=== PATIENT | female | born 1955 | race African-American/Black ===

== ENCOUNTER 2018-04-18 15:55 | Inpatient (IN) | payer MEDICARE, OTHER ==
[~2018-04-18] VITALS: Ht 162.6 cm; Wt 59.0 kg
[2018-04-18] MEDS ORDERED: SODIUM CHLORIDE 0.9% 1,000 ML IV ONE (16:06)
[2018-04-18 17:28] LABS: EOSINOPHILS % 1.7 % (0.0-5.0); HEMATOCRIT. 46.4 % (36.0-48.0); HEMOGLOBIN. 15.8 g/dL (12.0-16.0); LYMPHOCYTES % 28.6 % (20.0-50.0); MEAN CORPUSCULAR HEMOGLOBIN 32.3 pg (28.0-32.0); MEAN CORPUSCULAR VOLUME 94.7 fL (81.0-99.0); MONOCYTES % 7.7 % (2.0-8.0); PLATELET 245 x1000/uL (130-400); RED CELL DISTRIBUTION WIDTH 13.4 % (11.6-14.6)
[2018-04-18 17:33] LABS: CHLORIDE 104 mEq/L (98-107)
[2018-04-18 17:36] LABS: CLARITY URINE CLOUDY (CLEAR); COLOR URINE DARK YELLOW (YELLOW); KETONES URINE NEGATIVE (NEGATIVE); LEUKOCYTE ESTERASE URINE 1+ (NEGATIVE); NITRITE URINE NEGATIVE (NEGATIVE); OCCULT BLOOD URINE NEGATIVE (NEGATIVE); PH URINE 6.5 (4.5-8.0); PROTEIN URINE 1+ (NEGATIVE); SPECIFIC GRAVITY URINE 1.022 (1.005-1.030)
[2018-04-18] MEDS ORDERED: DOCUSATE SODIUM 100MG CAPSULE PO PRN (19:15)
[2018-04-18] MEDS ORDERED: HYDROCODONE/ACETAMINOPHEN 5/325MG TABLET PO PRN (19:15)
[2018-04-18] MEDS ORDERED: NA PHOS,M-B/NA PHOS,DI-BA ENEMA 118ML PR PRN (19:15)
[2018-04-18] MEDS ORDERED: DIPHENHYDRAMINE 50MG/ML VIAL IV PRN (19:15)
[2018-04-18] MEDS ORDERED: ACETAMINOPHEN 325MG TABLET PO PRN (19:15)
[2018-04-18] MEDS ORDERED: ONDANSETRON HCL 4MG/2ML INJ IV PRN (19:15)
[2018-04-18] MEDS ORDERED: LORAZEPAM 2MG/ML CPJ IV PRN (19:15)
[2018-04-18] MEDS ORDERED: IPRATROPIUM/ALBUTEROL 0.5-3(2.5)MG/3ML NEB INH PRN (19:15)
[2018-04-18] MEDS ORDERED: HYDROMORPHONE HCL/PF 2MG/ML CPJ IV PRN (19:15)
[2018-04-18] MEDS ORDERED: MAGNESIUM/ALUMINUM HYDROXIDE/SIMETHICONE 30ML UDC PO PRN (19:15)
[2018-04-18] MEDS ORDERED: GUAIFENESIN 200MG/10ML SUGAR FREE UDC PO PRN (19:15)
[2018-04-18 20:00] VITALS: BP 162/89
[2018-04-18 21:00] VITALS: BP 162/89
[2018-04-18] MEDS: DEXT 5%/0.45% NACL KCL 10MEQ/L 1,000 ML IV SCH (22:00)
[2018-04-18 23:07] LABS: CHLORIDE 106 mEq/L (98-107)
[2018-04-19] VITALS (7 sets, daily range): BP systolic 130–170; BP diastolic 77–86
[2018-04-19] MEDS: CLONIDINE 0.1MG TABLET PO PRN (04:45)
[2018-04-19 07:18] LABS: BASOPHILS % 0.7 % (0.0-2.0); EOSINOPHILS % 2.7 % (0.0-5.0); HEMATOCRIT. 36.1 % (36.0-48.0); HEMOGLOBIN. 12.4 g/dL (12.0-16.0); LYMPHOCYTES % 43.6 % (20.0-50.0); MEAN CORPUSCULAR HEMOGLOBIN 32.2 pg (28.0-32.0); MEAN CORPUSCULAR VOLUME 93.7 fL (81.0-99.0); MEAN PLATELET VOLUME 8.9 fl (7.4-10.4); MONOCYTES % 12.5 % (2.0-8.0); NEUTROPHILS % 40.5 % (40.0-76.0); PLATELET 215 x1000/uL (130-400); RED BLOOD CELL COUNT 3.85 mill/uL (4.2-5.4)
[2018-04-19 07:42] LABS: CHLORIDE 108 mEq/L (98-107)
[2018-04-19 07:54] LABS: LDL CHOLESTEROL 86 mg/dL (5-100); T4 FREE 1.08 ng/dL (0.76-1.46)
[2018-04-19 07:55] LABS: HDL CHOLESTEROL 57 mg/dL (40-59)
[2018-04-19] MEDS: ASPIRIN 81MG EC TABLET PO SCH (08:57)
[2018-04-19] MEDS: ENOXAPARIN 40MG/0.4ML SYR SUBCUT SCH (08:59)
[2018-04-19] MEDS: DEXT 5%/0.45% NACL KCL 10MEQ/L 1,000 ML IV SCH (15:19)
[2018-04-20] VITALS: BP 137/80
[2018-04-20] MEDS: DEXT 5%/0.45% NACL KCL 10MEQ/L 1,000 ML IV SCH (00:59)
[2018-04-20 04:00] VITALS: BP 148/86
[2018-04-20 06:51] LABS: BASOPHILS % 1.1 % (0.0-2.0); EOSINOPHILS % 5.3 % (0.0-5.0); HEMATOCRIT. 37.1 % (36.0-48.0); HEMOGLOBIN. 12.9 g/dL (12.0-16.0); LYMPHOCYTES % 49.1 % (20.0-50.0); MEAN CORPUSCULAR HEMOGLOBIN 32.9 pg (28.0-32.0); MEAN CORPUSCULAR VOLUME 94.7 fL (81.0-99.0); MEAN PLATELET VOLUME 8.7 fl (7.4-10.4); MONOCYTES % 12.7 % (2.0-8.0); NEUTROPHILS % 31.8 % (40.0-76.0); PLATELET 212 x1000/uL (130-400); RED BLOOD CELL COUNT 3.92 mill/uL (4.2-5.4)
[2018-04-20 08:00] VITALS: BP 164/90
[2018-04-20 08:13] LABS: CHLORIDE 110 mEq/L (98-107)
[2018-04-20] MEDS: ASPIRIN 81MG EC TABLET PO SCH (08:24)
[2018-04-20] MEDS: ENOXAPARIN 40MG/0.4ML SYR SUBCUT SCH (08:24)
[2018-04-20] MEDS: CLONIDINE 0.1MG TABLET PO PRN (10:24)
[2018-04-20 12:00] VITALS: BP 131/87
[2018-04-20 12:08] VITALS: BP 131/87
== END 2018-04-20 12:45 | disposition home or self-care (01) | DRG 640 ==
LOC: ER 16:08 → EDBEDREQTM 19:07 → EDBEDREQ 19:07 → ENRESERV 19:35 → 7WST 20:53
PROVIDERS: ADMIT Internal Medicine; ATTEND Internal Medicine
DX: E86.0 Dehydration (principal); G93.41 Metabolic encephalopathy; E46 Unspecified protein-calorie malnutrition; I10 Essential (primary) hypertension; E87.6 Hypokalemia; D72.819 Decreased white blood cell count, unspecified; G35 Multiple sclerosis; L84 Corns and callosities; M20.42 Other hammer toe(s) (acquired), left foot; M20.41 Other hammer toe(s) (acquired), right foot; R74.0 Nonspecific elevation of levels of transaminase and lactic acid dehydrogenase [LDH]; E11.9 Type 2 diabetes mellitus without complications; Z86.73 Personal history of transient ischemic attack (TIA), and cerebral infarction without residual deficits; Z68.22 Body mass index [BMI] 22.0-22.9, adult
CPT/HCPCS: 36415; 71045; 80048; 80061; 84439; 84443; 84484; 87804; 93005; 96360; 96361; 99285; J1200; J1650; J7030

== ENCOUNTER 2018-12-01 21:00 | Inpatient (IN) | payer MEDICARE, OTHER ==
[~2018-12-01] VITALS: Ht 165.1 cm; Wt 63.5 kg
[2018-12-01 21:00] VITALS: BP_SYST 138; BP_SYST 168; BP_DIAS 100; BP_DIAS 84
[~2018-12-01 21:00] MED LIST: ASPI-1393 PO; DIAZ10TA4 PO; ERGO2000 PO; FOLI-43 PO; LIP40 PO; LOSA50TA41 PO; QUET100T33 PO; RAMI5CAP65 PO; SENN17.27 MT
[2018-12-02] MEDS ORDERED: ONDANSETRON HCL 4MG/2ML INJ IV PRN (01:30)
[2018-12-02] MEDS ORDERED: KETOROLAC 30MG/ML VIAL IV PRN (01:30)
[2018-12-02] MEDS ORDERED: ZOLPIDEM TARTRATE 5MG TABLET PO PRN (01:30)
[2018-12-02] MEDS ORDERED: TRAMADOL 50MG TABLET PO PRN (01:30)
[2018-12-02] MEDS ORDERED: IPRATROPIUM/ALBUTEROL 0.5-3(2.5)MG/3ML NEB HHN PRN (01:30)
[2018-12-02] MEDS: SODIUM CHLORIDE 0.9% 1,000 ML IV SCH ×3 (02:00→12:10)
[2018-12-02] MEDS: DEXAMETHASONE 4MG/ML 1ML VIAL IV SCH ×4 (03:24→21:32)
[2018-12-02 07:52] LABS: BASOPHILS % 0.4 % (0.0-2.0); EOSINOPHILS % 0.4 % (0.0-5.0); HEMATOCRIT. 40.2 % (36.0-48.0); HEMOGLOBIN. 13.7 g/dL (12.0-16.0); LYMPHOCYTES % 14.5 % (20.0-50.0); MEAN CORPUSCULAR HEMOGLOBIN 31.5 pg (28.0-32.0); MEAN CORPUSCULAR VOLUME 92.4 fL (81.0-99.0); MEAN PLATELET VOLUME 8.4 fl (7.4-10.4); MONOCYTES % 2.9 % (2.0-8.0); NEUTROPHILS % 81.8 % (40.0-76.0); PLATELET 273 x1000/uL (130-400); RED BLOOD CELL COUNT 4.35 mill/uL (4.2-5.4); RED CELL DISTRIBUTION WIDTH 13.6 % (11.6-14.6)
[2018-12-02 08:02] LABS: CHLORIDE 112 mEq/L (98-107)
[2018-12-02] MEDS: LOSARTAN POTASSIUM 50 MG TABLET PO SCH (08:30)
[2018-12-02] MEDS: ASPIRIN 81MG EC TABLET PO SCH (08:30)
[2018-12-02] MEDS: ENOXAPARIN 40MG/0.4ML SYR SUBCUT SCH (08:31)
[2018-12-02] MEDS ORDERED: RAMIPRIL 5 MG PO SCH (09:00)
[2018-12-02 09:04] VITALS: BP 128/76
[2018-12-02] MEDS ORDERED: BISACODYL 10MG SUPP PR PRN (12:15)
[2018-12-02] MEDS: KETOROLAC 15MG/ML VIAL IV PRN (12:16)
[2018-12-02] MEDS: LACTULOSE 20G/30ML UDC PO SCH ×3 (13:41→21:32)
[2018-12-02] MEDS: DOCUSATE SODIUM 100MG CAPSULE PO SCH (17:23)
[2018-12-02 20:00] VITALS: BP 151/79
[2018-12-02] MEDS ORDERED: QUETIAPINE FUMARATE 50MG TABLET PO SCH (21:00)
[2018-12-02] MEDS: POLYETHYLENE GLYCOL 3350 (17GM) 1 DOSE PACK PO SCH (21:34)
[2018-12-02] MEDS: QUETIAPINE FUMARATE 50MG TABLET PO SCH (21:34)
[2018-12-02] MEDS: ATORVASTATIN CALCIUM 40MG TABLET PO SCH (21:46)
[2018-12-03] MEDS: DEXAMETHASONE 4MG/ML 1ML VIAL IV SCH ×4 (02:06→20:13)
[2018-12-03 07:52] VITALS: BP 147/77
[2018-12-03] MEDS: SODIUM CHLORIDE 0.9% 1,000 ML IV SCH ×2 (08:00→17:22)
[2018-12-03] MEDS: DOCUSATE SODIUM 100MG CAPSULE PO SCH ×2 (09:02→16:18)
[2018-12-03] MEDS: LOSARTAN POTASSIUM 50 MG TABLET PO SCH (09:02)
[2018-12-03] MEDS: ENOXAPARIN 40MG/0.4ML SYR SUBCUT SCH (09:02)
[2018-12-03] MEDS: ASPIRIN 81MG EC TABLET PO SCH (09:02)
[2018-12-03] MEDS ORDERED: BISACODYL 10MG SUPP PR PRN (15:00)
[2018-12-03] MEDS ORDERED: SORBITOL 70% SOLN 30ML PO NR (16:00)
[2018-12-03] MEDS ORDERED: NA PHOS,M-B/NA PHOS,DI-BA ENEMA 118ML PR NR (16:00)
[2018-12-03 20:00] VITALS: BP 139/80
[2018-12-03] MEDS: QUETIAPINE FUMARATE 50MG TABLET PO SCH (20:13)
[2018-12-03] MEDS: ATORVASTATIN CALCIUM 40MG TABLET PO SCH (20:13)
[2018-12-03] MEDS: POLYETHYLENE GLYCOL 3350 (17GM) 1 DOSE PACK PO SCH (20:13)
[2018-12-04 02:04] LABS: CLARITY URINE CLEAR (CLEAR); COLOR URINE YELLOW (YELLOW); KETONES URINE NEGATIVE (NEGATIVE); LEUKOCYTE ESTERASE URINE NEGATIVE (NEGATIVE); NITRITE URINE NEGATIVE (NEGATIVE); OCCULT BLOOD URINE NEGATIVE (NEGATIVE); PROTEIN URINE NEGATIVE (NEGATIVE); SPECIFIC GRAVITY URINE 1.007 (1.005-1.030); UROBILINOGEN URINE 0.2 E.U./dL (0.2-1.0)
[2018-12-04] MEDS: DEXAMETHASONE 4MG/ML 1ML VIAL IV SCH ×3 (05:40→13:20)
[2018-12-04 06:33] LABS: BASOPHILS % 0.6 % (0.0-2.0); HEMATOCRIT. 36.8 % (36.0-48.0); HEMOGLOBIN. 12.6 g/dL (12.0-16.0); LYMPHOCYTES % 14.5 % (20.0-50.0); MEAN CORPUSCULAR HEMOGLOBIN 31.9 pg (28.0-32.0); MEAN CORPUSCULAR VOLUME 93.1 fL (81.0-99.0); MEAN PLATELET VOLUME 8.6 fl (7.4-10.4); MONOCYTES % 6.2 % (2.0-8.0); NEUTROPHILS % 78.7 % (40.0-76.0); PLATELET 271 x1000/uL (130-400); RED BLOOD CELL COUNT 3.95 mill/uL (4.2-5.4); RED CELL DISTRIBUTION WIDTH 13.5 % (11.6-14.6)
[2018-12-04] MEDS: SODIUM CHLORIDE 0.9% 1,000 ML IV SCH ×2 (06:43→13:27)
[2018-12-04 07:01] LABS: CHLORIDE 115 mEq/L (98-107)
[2018-12-04 07:05] LABS: FOLIC ACID (FOLATE) SERUM 5.2 ng/mL (>5.38)
[2018-12-04 07:13] LABS: PHOSPHORUS 3.5 mg/dL (2.5-4.9); TOTAL IRON BINDING CAPACITY 191 ug/dL (250-450)
[2018-12-04 08:00] VITALS: BP 152/88
[2018-12-04] MEDS: LOSARTAN POTASSIUM 50 MG TABLET PO SCH (08:44)
[2018-12-04] MEDS: CLOPIDOGREL 75MG TABLET PO SCH (08:44)
[2018-12-04] MEDS: DOCUSATE SODIUM 100MG CAPSULE PO SCH ×2 (08:44→16:47)
[2018-12-04] MEDS: ENOXAPARIN 40MG/0.4ML SYR SUBCUT SCH (08:45)
[2018-12-04] MEDS ORDERED: NA PHOS,M-B/NA PHOS,DI-BA ENEMA 118ML PR PRN (09:00)
[2018-12-04] MEDS: KETOROLAC 15MG/ML VIAL IV PRN (12:34)
[2018-12-04] MEDS ORDERED: CLONIDINE 0.1MG TABLET PO PRN (13:00)
[2018-12-04] MEDS: FOLIC ACID 1MG TABLET PO SCH (13:28)
[2018-12-04 13:57] VITALS: BP 139/76
[2018-12-04 20:00] VITALS: BP 133/67
[2018-12-04] MEDS: ATORVASTATIN CALCIUM 40MG TABLET PO SCH (20:32)
[2018-12-04] MEDS: QUETIAPINE FUMARATE 50MG TABLET PO SCH (20:32)
[2018-12-04] MEDS: POLYETHYLENE GLYCOL 3350 (17GM) 1 DOSE PACK PO SCH (20:33)
[2018-12-05] MEDS: SODIUM CHLORIDE 0.9% 1,000 ML IV SCH (03:28)
[2018-12-05 06:35] LABS: CHLORIDE 115 mEq/L (98-107)
[2018-12-05 06:57] LABS: T4 FREE 0.82 ng/dL (0.76-1.46)
[2018-12-05 08:00] VITALS: BP 158/78
[2018-12-05] MEDS: CLOPIDOGREL 75MG TABLET PO SCH (09:02)
[2018-12-05] MEDS: FOLIC ACID 1MG TABLET PO SCH (09:02)
[2018-12-05] MEDS: ENOXAPARIN 40MG/0.4ML SYR SUBCUT SCH (09:02)
[2018-12-05] MEDS: LOSARTAN POTASSIUM 50 MG TABLET PO SCH (09:02)
[2018-12-05] MEDS: DEXAMETHASONE 4MG/ML 1ML VIAL IV SCH (09:02)
[2018-12-05] MEDS: DOCUSATE SODIUM 100MG CAPSULE PO SCH ×2 (09:03→16:53)
[2018-12-05] MEDS ORDERED: BISACODYL 10MG SUPP PR SCH (14:15)
[2018-12-05] MEDS ORDERED: SORBITOL 70% SOLN 30ML PO NR (14:15)
[2018-12-05 20:00] VITALS: BP 157/94
[2018-12-05] MEDS: POLYETHYLENE GLYCOL 3350 (17GM) 1 DOSE PACK PO SCH (21:00)
[2018-12-05] MEDS: QUETIAPINE FUMARATE 50MG TABLET PO SCH (21:02)
[2018-12-05] MEDS: ATORVASTATIN CALCIUM 40MG TABLET PO SCH (21:02)
[2018-12-06 07:18] LABS: CHLORIDE 110 mEq/L (98-107)
[2018-12-06 08:00] VITALS: BP 149/93
[2018-12-06] MEDS: FOLIC ACID 1MG TABLET PO SCH (09:00)
[2018-12-06] MEDS: LOSARTAN POTASSIUM 50 MG TABLET PO SCH (09:00)
[2018-12-06] MEDS: CLOPIDOGREL 75MG TABLET PO SCH (09:00)
[2018-12-06] MEDS: ENOXAPARIN 40MG/0.4ML SYR SUBCUT SCH (09:00)
[2018-12-06] MEDS: DOCUSATE SODIUM 100MG CAPSULE PO SCH ×2 (09:00→16:43)
[2018-12-06] MEDS: DEXAMETHASONE 4MG/ML 1ML VIAL IV SCH (09:00)
[2018-12-06] MEDS ORDERED: ZOLPIDEM TARTRATE 5MG TABLET PO PRN (17:00)
[2018-12-06] MEDS ORDERED: TRAMADOL 50MG TABLET PO PRN (19:30)
[2018-12-06] MEDS ORDERED: KETOROLAC 15MG/ML VIAL IV PRN (19:45)
[2018-12-06 20:00] VITALS: BP 148/76
[2018-12-06] MEDS: QUETIAPINE FUMARATE 50MG TABLET PO SCH (21:03)
[2018-12-06] MEDS: POLYETHYLENE GLYCOL 3350 (17GM) 1 DOSE PACK PO SCH (21:03)
[2018-12-06] MEDS: ATORVASTATIN CALCIUM 40MG TABLET PO SCH (21:03)
[2018-12-07 07:12] LABS: FOLICLE STIMULATING HORMONE 45.2 mIU/mL (.); LUTEINIZING HORMONE 33.6 mIU/mL (.)
[2018-12-07 08:22] VITALS: BP 163/89
[2018-12-07] MEDS: LOSARTAN POTASSIUM 50 MG TABLET PO SCH (09:07)
[2018-12-07] MEDS: FOLIC ACID 1MG TABLET PO SCH (09:07)
[2018-12-07] MEDS: ENOXAPARIN 40MG/0.4ML SYR SUBCUT SCH (09:07)
[2018-12-07] MEDS: DOCUSATE SODIUM 100MG CAPSULE PO SCH ×2 (09:07→16:49)
[2018-12-07] MEDS: DEXAMETHASONE 4MG/ML 1ML VIAL IV SCH (09:07)
[2018-12-07] MEDS: CLOPIDOGREL 75MG TABLET PO SCH (09:07)
[2018-12-07] MEDS: ACETAMINOPHEN 325MG TABLET PO PRN (10:51)
[2018-12-07] MEDS ORDERED: MAGNESIUM/ALUMINUM HYDROXIDE/SIMETHICONE 30ML UDC PO NR (16:00)
[2018-12-07] MEDS ORDERED: SORBITOL 70% SOLN 30ML PO NR (16:00)
[2018-12-07] MEDS: PANTOPRAZOLE 40MG DR TABLET PO SCH (16:49)
[2018-12-07 20:00] VITALS: BP 140/80
[2018-12-07] MEDS: ATORVASTATIN CALCIUM 40MG TABLET PO SCH (20:47)
[2018-12-07] MEDS: QUETIAPINE FUMARATE 50MG TABLET PO SCH (20:47)
[2018-12-07] MEDS: POLYETHYLENE GLYCOL 3350 (17GM) 1 DOSE PACK PO SCH (20:47)
[2018-12-08] MEDS: PANTOPRAZOLE 40MG DR TABLET PO SCH (06:11)
[2018-12-08] MEDS: ACETAMINOPHEN 325MG TABLET PO PRN (06:15)
[2018-12-08 06:16] LABS: BASOPHILS % 0.6 % (0.0-2.0); HEMATOCRIT. 38.6 % (36.0-48.0); HEMOGLOBIN. 13.1 g/dL (12.0-16.0); LYMPHOCYTES % 28.3 % (20.0-50.0); MEAN CORPUSCULAR HEMOGLOBIN 31.5 pg (28.0-32.0); MEAN CORPUSCULAR VOLUME 92.7 fL (81.0-99.0); MEAN PLATELET VOLUME 8.7 fl (7.4-10.4); MONOCYTES % 10.1 % (2.0-8.0); PLATELET 275 x1000/uL (130-400); RED BLOOD CELL COUNT 4.17 mill/uL (4.2-5.4); RED CELL DISTRIBUTION WIDTH 13.7 % (11.6-14.6)
[2018-12-08 06:36] LABS: CHLORIDE 109 mEq/L (98-107)
[2018-12-08 06:41] LABS: PHOSPHORUS 3.5 mg/dL (2.5-4.9)
[2018-12-08 08:14] VITALS: BP 131/80
[2018-12-08] MEDS: ENOXAPARIN 40MG/0.4ML SYR SUBCUT SCH (09:56)
[2018-12-08] MEDS: FOLIC ACID 1MG TABLET PO SCH (09:57)
[2018-12-08] MEDS: CLOPIDOGREL 75MG TABLET PO SCH (09:57)
[2018-12-08] MEDS: LOSARTAN POTASSIUM 100 MG TABLET PO SCH (09:57)
[2018-12-08] MEDS: DOCUSATE SODIUM 100MG CAPSULE PO SCH ×2 (09:57→17:15)
[2018-12-08] MEDS: DEXAMETHASONE 4MG/ML 1ML VIAL IV SCH (09:58)
[2018-12-08] MEDS: TRAMADOL 50MG TABLET PO PRN (17:22)
[2018-12-08 19:13] LABS: 25-HYDROXY VITAMIN D3 3.5 ng/mL (.)
[2018-12-08 20:00] VITALS: BP 159/96
[2018-12-08] MEDS: QUETIAPINE FUMARATE 50MG TABLET PO SCH (21:15)
[2018-12-08] MEDS: ATORVASTATIN CALCIUM 40MG TABLET PO SCH (21:15)
[2018-12-08] MEDS: POLYETHYLENE GLYCOL 3350 (17GM) 1 DOSE PACK PO SCH (21:16)
[2018-12-09] MEDS: TRAMADOL 50MG TABLET PO PRN (01:48)
[2018-12-09 08:00] VITALS: BP 142/74
[2018-12-09] MEDS: ENOXAPARIN 40MG/0.4ML SYR SUBCUT SCH (09:26)
[2018-12-09] MEDS: CLOPIDOGREL 75MG TABLET PO SCH (09:26)
[2018-12-09] MEDS: LOSARTAN POTASSIUM 100 MG TABLET PO SCH (09:26)
[2018-12-09] MEDS: FOLIC ACID 1MG TABLET PO SCH (09:26)
[2018-12-09] MEDS: FAMOTIDINE 20MG TABLET PO SCH ×2 (09:26→20:56)
[2018-12-09] MEDS: DOCUSATE SODIUM 100MG CAPSULE PO SCH ×2 (09:26→16:19)
[2018-12-09 20:00] VITALS: BP 137/65
[2018-12-09] MEDS: ATORVASTATIN CALCIUM 40MG TABLET PO SCH (20:56)
[2018-12-09] MEDS: QUETIAPINE FUMARATE 50MG TABLET PO SCH (20:56)
[2018-12-09] MEDS: POLYETHYLENE GLYCOL 3350 (17GM) 1 DOSE PACK PO SCH (20:57)
[2018-12-10 08:00] VITALS: BP 116/61
[2018-12-10] MEDS: ENOXAPARIN 40MG/0.4ML SYR SUBCUT SCH (08:59)
[2018-12-10] MEDS: FAMOTIDINE 20MG TABLET PO SCH ×2 (08:59→21:24)
[2018-12-10] MEDS: CLOPIDOGREL 75MG TABLET PO SCH (08:59)
[2018-12-10] MEDS: FOLIC ACID 1MG TABLET PO SCH (08:59)
[2018-12-10] MEDS: LOSARTAN POTASSIUM 100 MG TABLET PO SCH (08:59)
[2018-12-10] MEDS: DOCUSATE SODIUM 100MG CAPSULE PO SCH ×2 (08:59→17:11)
[2018-12-10 20:00] VITALS: BP 130/85
[2018-12-10] MEDS: ACETAMINOPHEN 325MG TABLET PO PRN (20:03)
[2018-12-10] MEDS: POLYETHYLENE GLYCOL 3350 (17GM) 1 DOSE PACK PO SCH (21:00)
[2018-12-10] MEDS ORDERED: ZOLPIDEM TARTRATE 5MG TABLET PO PRN (21:00)
[2018-12-10] MEDS: QUETIAPINE FUMARATE 50MG TABLET PO SCH (21:24)
[2018-12-10] MEDS: ATORVASTATIN CALCIUM 40MG TABLET PO SCH (21:24)
[2018-12-11 07:02] LABS: CHLORIDE 108 mEq/L (98-107)
[2018-12-11 07:26] LABS: BASOPHILS % 0.9 % (0.0-2.0); HEMATOCRIT. 40.6 % (36.0-48.0); HEMOGLOBIN. 13.8 g/dL (12.0-16.0); LYMPHOCYTES % 35.6 % (20.0-50.0); MEAN CORPUSCULAR HEMOGLOBIN 31.8 pg (28.0-32.0); MEAN CORPUSCULAR VOLUME 93.9 fL (81.0-99.0); MEAN PLATELET VOLUME 8.3 fl (7.4-10.4); MONOCYTES % 13.7 % (2.0-8.0); NEUTROPHILS % 45.8 % (40.0-76.0); PLATELET 318 x1000/uL (130-400); RED BLOOD CELL COUNT 4.33 mill/uL (4.2-5.4); RED CELL DISTRIBUTION WIDTH 13.8 % (11.6-14.6)
[2018-12-11 08:49] VITALS: BP 140/82
[2018-12-11] MEDS: ENOXAPARIN 40MG/0.4ML SYR SUBCUT SCH (09:16)
[2018-12-11] MEDS: FOLIC ACID 1MG TABLET PO SCH (09:17)
[2018-12-11] MEDS: DOCUSATE SODIUM 100MG CAPSULE PO SCH ×2 (09:18→17:01)
[2018-12-11] MEDS: TRAMADOL 50MG TABLET PO PRN (09:18)
[2018-12-11] MEDS: CLOPIDOGREL 75MG TABLET PO SCH (09:19)
[2018-12-11] MEDS: LOSARTAN POTASSIUM 100 MG TABLET PO SCH (09:19)
[2018-12-11] MEDS: FAMOTIDINE 20MG TABLET PO SCH ×2 (09:19→21:20)
[2018-12-11] MEDS: TRAMADOL 50MG TABLET PO NR (11:11)
[2018-12-11] MEDS: ACETAMINOPHEN 500MG TABLET PO SCH ×2 (12:12→17:01)
[2018-12-11] MEDS: METHYL SALICYLATE/MENTHOL CREAM 85GM TOP SCH ×2 (12:12→20:06)
[2018-12-11 20:00] VITALS: BP 113/64
[2018-12-11] MEDS: QUETIAPINE FUMARATE 50MG TABLET PO SCH (21:20)
[2018-12-11] MEDS: POLYETHYLENE GLYCOL 3350 (17GM) 1 DOSE PACK PO SCH (21:20)
[2018-12-11] MEDS: ATORVASTATIN CALCIUM 40MG TABLET PO SCH (21:20)
[2018-12-12] MEDS: TRAMADOL 50MG TABLET PO NR ×2 (00:40→08:52)
[2018-12-12] MEDS: METHYL SALICYLATE/MENTHOL CREAM 85GM TOP SCH ×4 (00:40→21:57)
[2018-12-12 08:00] VITALS: BP 116/74
[2018-12-12] MEDS: ENOXAPARIN 40MG/0.4ML SYR SUBCUT SCH (08:50)
[2018-12-12] MEDS: FOLIC ACID 1MG TABLET PO SCH (08:50)
[2018-12-12] MEDS: FAMOTIDINE 20MG TABLET PO SCH ×2 (08:50→21:52)
[2018-12-12] MEDS: CLOPIDOGREL 75MG TABLET PO SCH (08:51)
[2018-12-12] MEDS: ACETAMINOPHEN 500MG TABLET PO SCH ×3 (08:51→16:10)
[2018-12-12] MEDS: DOCUSATE SODIUM 100MG CAPSULE PO SCH ×2 (08:52→16:10)
[2018-12-12] MEDS: LOSARTAN POTASSIUM 100 MG TABLET PO SCH (08:52)
[2018-12-12 20:00] VITALS: BP 112/75
[2018-12-12] MEDS: POLYETHYLENE GLYCOL 3350 (17GM) 1 DOSE PACK PO SCH (21:00)
[2018-12-12] MEDS: ATORVASTATIN CALCIUM 40MG TABLET PO SCH (21:52)
[2018-12-12] MEDS: QUETIAPINE FUMARATE 50MG TABLET PO SCH (21:52)
[2018-12-13] MEDS: METHYL SALICYLATE/MENTHOL CREAM 85GM TOP SCH ×3 (05:43→18:56)
[2018-12-13 07:56] VITALS: BP 108/69
[2018-12-13] MEDS: CLOPIDOGREL 75MG TABLET PO SCH (08:16)
[2018-12-13] MEDS: ACETAMINOPHEN 500MG TABLET PO SCH ×2 (08:16→12:01)
[2018-12-13] MEDS: DOCUSATE SODIUM 100MG CAPSULE PO SCH ×2 (08:16→16:07)
[2018-12-13] MEDS: FOLIC ACID 1MG TABLET PO SCH (08:16)
[2018-12-13] MEDS: ENOXAPARIN 40MG/0.4ML SYR SUBCUT SCH (08:16)
[2018-12-13] MEDS: FAMOTIDINE 20MG TABLET PO SCH ×2 (08:16→20:54)
[2018-12-13] MEDS: LOSARTAN POTASSIUM 100 MG TABLET PO SCH (08:17)
[2018-12-13] MEDS ORDERED: LACTULOSE 20G/30ML UDC PO SCH (13:00)
[2018-12-13] MEDS ORDERED: TRAMADOL 50MG TABLET PO PRN (19:30)
[2018-12-13 20:00] VITALS: BP 136/76
[2018-12-13] MEDS: ATORVASTATIN CALCIUM 40MG TABLET PO SCH (20:54)
[2018-12-13] MEDS: QUETIAPINE FUMARATE 50MG TABLET PO SCH (20:54)
[2018-12-13] MEDS: POLYETHYLENE GLYCOL 3350 (17GM) 1 DOSE PACK PO SCH (20:55)
[2018-12-14] MEDS: METHYL SALICYLATE/MENTHOL CREAM 85GM TOP SCH ×3 (00:42→12:17)
[2018-12-14 08:00] VITALS: BP 123/65
[2018-12-14 08:04] VITALS: BP 123/64
[2018-12-14] MEDS: FOLIC ACID 1MG TABLET PO SCH (08:23)
[2018-12-14] MEDS: FAMOTIDINE 20MG TABLET PO SCH (08:23)
[2018-12-14] MEDS: LOSARTAN POTASSIUM 100 MG TABLET PO SCH (08:23)
[2018-12-14] MEDS: CLOPIDOGREL 75MG TABLET PO SCH (08:23)
[2018-12-14] MEDS: ENOXAPARIN 40MG/0.4ML SYR SUBCUT SCH ×2 (08:24→08:27)
[2018-12-14] MEDS: DOCUSATE SODIUM 100MG CAPSULE PO SCH (08:24)
[2018-12-14] MEDS ORDERED: DOCU-138 PO (09:01)
[2018-12-14] MEDS ORDERED: FAMO20TA8 PO (09:01)
[2018-12-14] MEDS ORDERED: CLOP75TA15 PO (09:01)
[2018-12-14] MEDS ORDERED: BENGAY TOP (09:01)
[2018-12-14] MEDS ORDERED: NA PHOS,M-B/NA PHOS,DI-BA ENEMA 118ML PR NR (09:15)
[2018-12-14 11:55] VITALS: BP 123/65
== END 2018-12-14 16:01 | disposition home health service (06) | DRG 64 ==
PROVIDERS: ADMIT Physical Medicine & Rehabilitation Spinal Cord Injury Medicine; ATTEND Internal Medicine
DX: I63.81 Other cerebral infarction due to occlusion or stenosis of small artery (principal); G82.50 Quadriplegia, unspecified; G95.20 Unspecified cord compression; E44.1 Mild protein-calorie malnutrition; E87.0 Hyperosmolality and hypernatremia; G93.89 Other specified disorders of brain; Z86.73 Personal history of transient ischemic attack (TIA), and cerebral infarction without residual deficits; M48.061 Spinal stenosis, lumbar region without neurogenic claudication; I10 Essential (primary) hypertension; B19.20 Unspecified viral hepatitis C without hepatic coma; E78.00 Pure hypercholesterolemia, unspecified; R53.81 Other malaise; R13.10 Dysphagia, unspecified; M48.02 Spinal stenosis, cervical region; E87.8 Other disorders of electrolyte and fluid balance, not elsewhere classified; M47.812 Spondylosis without myelopathy or radiculopathy, cervical region; E53.8 Deficiency of other specified B group vitamins; E83.51 Hypocalcemia; F01.50 Vascular dementia, unspecified severity, without behavioral disturbance, psychotic disturbance, mood disturbance, and anxiety; F17.210 Nicotine dependence, cigarettes, uncomplicated; G35 Multiple sclerosis; G47.00 Insomnia, unspecified; J44.9 Chronic obstructive pulmonary disease, unspecified; M21.372 Foot drop, left foot; F14.10 Cocaine abuse, uncomplicated; F10.10 Alcohol abuse, uncomplicated; D64.9 Anemia, unspecified; Z91.19 Patient's noncompliance with other medical treatment and regimen; Z88.6 Allergy status to analgesic agent; Z79.899 Other long term (current) drug therapy; Z82.49 Family history of ischemic heart disease and other diseases of the circulatory system; Z71.6 Tobacco abuse counseling; Z71.51 Drug abuse counseling and surveillance of drug abuser; Z68.23 Body mass index [BMI] 23.0-23.9, adult; Y90.9 Presence of alcohol in blood, level not specified
CPT/HCPCS: 36415; 80048; 81003; 82140; 82306; 82607; 82728; 82746; 83001; 83002; 83036; 83520; 83540; 83550; 83735; 84100; 84134; 84146; 84439; 84443; 84481; 86376; 92523; 92610; 97110; 97112; 97116; 97162; 97166; 97530; 97535; J1100; J1650; J1885; J7030

== ENCOUNTER 2019-02-08 19:58 | Inpatient (IN) | payer MEDICARE, OTHER ==
[~2019-02-08] VITALS: Ht 162.6 cm; Wt 64.4 kg
[~2019-02-08 19:58] MED LIST changes: -ASPI-1393 PO; +BENGAY TOP; +CLOP75TA15 PO; +DOCU-138 PO; +FAMO20TA8 PO; -RAMI5CAP65 PO
[2019-02-08] MEDS ORDERED: CLOPIDOGREL 75MG TABLET PO ONE (21:15)
[2019-02-08] MEDS ORDERED: NITROGLYCERIN 0.4MG TABLET SL SL PRN (21:15)
[2019-02-08] MEDS ORDERED: AMLODIPINE 10MG TABLET PO ONE (21:15)
[2019-02-08] MEDS ORDERED: ASPIRIN 81MG TABLET PO ONE (21:15)
[2019-02-08 21:38] LABS: BASOPHILS % 0.2 % (0.0-2.0); EOSINOPHILS % 3.6 % (0.0-5.0); HEMATOCRIT. 45.6 % (36.0-48.0); HEMOGLOBIN. 15.6 g/dL (12.0-16.0); LYMPHOCYTES % 52.8 % (20.0-50.0); MEAN CORPUSCULAR HEMOGLOBIN 31.4 pg (28.0-32.0); MEAN PLATELET VOLUME 8.1 fl (7.4-10.4); MONOCYTES % 11.3 % (2.0-8.0); NEUTROPHILS % 32.1 % (40.0-76.0); PLATELET 313 x1000/uL (130-400); RED BLOOD CELL COUNT 4.96 mill/uL (4.2-5.4); RED CELL DISTRIBUTION WIDTH 13.6 % (11.6-14.6)
[2019-02-08 21:44] LABS: CHLORIDE 108 mEq/L (98-107); PROTHROMBIN TIME 10.1 sec (9.6-11.0)
[2019-02-08] MEDS ORDERED: IPRATROPIUM/ALBUTEROL 0.5-3(2.5)MG/3ML NEB NEB PRN (23:45)
[2019-02-08] MEDS ORDERED: DOCUSATE SODIUM 100MG CAPSULE PO PRN (23:45)
[2019-02-08] MEDS ORDERED: ACETAMINOPHEN 325MG TABLET PO PRN (23:45)
[2019-02-08] MEDS ORDERED: MAGNESIUM/ALUMINUM HYDROXIDE/SIMETHICONE 30ML UDC PO PRN (23:45)
[2019-02-08] MEDS ORDERED: HYDROCODONE/ACETAMINOPHEN 5/325MG TABLET PO PRN (23:45)
[2019-02-08] MEDS ORDERED: CLONIDINE 0.1MG TABLET PO PRN (23:45)
[2019-02-08] MEDS ORDERED: ONDANSETRON HCL 4MG/2ML INJ IV PRN (23:45)
[2019-02-09 00:17] LABS: CHLORIDE 108 mEq/L (98-107)
[2019-02-09 00:35] VITALS: BP 175/93
[2019-02-09 01:44] LABS: CLARITY URINE CLEAR (CLEAR); COLOR URINE YELLOW (YELLOW); KETONES URINE NEGATIVE (NEGATIVE); LEUKOCYTE ESTERASE URINE NEGATIVE (NEGATIVE); NITRITE URINE NEGATIVE (NEGATIVE); OCCULT BLOOD URINE NEGATIVE (NEGATIVE); PH URINE 7.5 (4.5-8.0); PROTEIN URINE NEGATIVE (NEGATIVE); SPECIFIC GRAVITY URINE 1.008 (1.005-1.030); UROBILINOGEN URINE 0.2 E.U./dL (0.2-1.0)
[2019-02-09 01:55] LABS: *AMPHETAMINES SCREEN URINE NEGATIVE (NEGATIVE); *BARBITURATES SCREEN URINE NEGATIVE (NEGATIVE)
[2019-02-09 01:56] LABS: *BENZODIAZEPINES SCREEN URINE NEGATIVE (NEGATIVE); *COCAINE SCREEN URINE NEGATIVE (NEGATIVE); CANNABINOID URINE SCREEN NEGATIVE (NEGATIVE); METHADONE URINE SCREEN NEGATIVE (NEGATIVE); PHENCYCLIDINE URINE SCREEN NEGATIVE (NEGATIVE)
[2019-02-09 01:57] LABS: OPIATES URINE SCREEN NEGATIVE (NEGATIVE)
[2019-02-09] MEDS: ENOXAPARIN 40MG/0.4ML SYR SUBCUT SCH ×2 (02:00→21:00)
[2019-02-09 03:28] VITALS: BP 93/61
[2019-02-09 07:16] LABS: CREATINE KINASE 53 IU/L (26-192)
[2019-02-09 07:17] LABS: CREATINE KINASE MB FRACTION < 1.0 ng/mL (0.5-3.6)
[2019-02-09 07:21] LABS: BASOPHILS % 0.8 % (0.0-2.0); HEMATOCRIT. 39.3 % (36.0-48.0); HEMOGLOBIN. 13.7 g/dL (12.0-16.0); LYMPHOCYTES % 41.9 % (20.0-50.0); MEAN PLATELET VOLUME 8.3 fl (7.4-10.4); MONOCYTES % 14.5 % (2.0-8.0); NEUTROPHILS % 37.8 % (40.0-76.0); PLATELET 281 x1000/uL (130-400); RED BLOOD CELL COUNT 4.27 mill/uL (4.2-5.4); RED CELL DISTRIBUTION WIDTH 13.6 % (11.6-14.6)
[2019-02-09 08:00] VITALS: BP 110/61
[2019-02-09] MEDS: ASPIRIN 81MG EC TABLET PO SCH (10:19)
[2019-02-09 12:00] VITALS: BP_SYST 102; BP_SYST 109; BP_DIAS 46; BP_DIAS 67
[2019-02-09] MEDS ORDERED: POTASSIUM CHLORIDE INJ 40 MEQ in DEXT 5% WATER 250 ML IV SCH (12:00)
[2019-02-09] MEDS ORDERED: MAGNESIUM 2 G PREMIX 50 ML IV SCH (12:00)
[2019-02-09 15:59] LABS: CREATINE KINASE 49 IU/L (26-192)
[2019-02-09 16:00] VITALS: BP 102/65
[2019-02-09 16:01] LABS: CREATINE KINASE MB FRACTION < 1.0 ng/mL (0.5-3.6)
[2019-02-09 20:00] VITALS: BP 131/79
[2019-02-09] MEDS ORDERED: ATORVASTATIN CALCIUM 20MG TABLET PO SCH (21:00)
[2019-02-10] VITALS: BP 130/79
[2019-02-10 08:00] VITALS: BP 139/82
[2019-02-10] MEDS: ASPIRIN 81MG EC TABLET PO SCH (08:52)
[2019-02-10 15:35] VITALS: BP 143/81
[2019-02-10 16:00] VITALS: BP 143/81
== END 2019-02-10 18:00 | disposition home or self-care (01) | DRG 311 ==
LOC: ER 19:58 → 8WST 22:52 → EDBEDREQTM 23:00 → EDBEDREQ 23:00 → ENRESERV 23:35
PROVIDERS: ADMIT Internal Medicine; ATTEND Internal Medicine
DX: I24.9 Acute ischemic heart disease, unspecified (principal); E78.00 Pure hypercholesterolemia, unspecified; I10 Essential (primary) hypertension; E78.5 Hyperlipidemia, unspecified; R74.0 Nonspecific elevation of levels of transaminase and lactic acid dehydrogenase [LDH]; F17.210 Nicotine dependence, cigarettes, uncomplicated; G35 Multiple sclerosis; Z86.73 Personal history of transient ischemic attack (TIA), and cerebral infarction without residual deficits; Z90.49 Acquired absence of other specified parts of digestive tract
CPT/HCPCS: 36415; 71045; 76700; 80048; 80061; 80305; 81003; 82550; 82553; 83735; 83880; 84443; 84484; 93005; 93970; 96365; 97162; 99291; J1650; J3475; J3480; J7040; J7060

== ENCOUNTER 2019-02-27 16:54 | Emergency (ER) | payer MEDICARE, OTHER ==
[~2019-02-27] VITALS: Ht 162.6 cm; Wt 63.0 kg
[2019-02-27] MEDS ORDERED: FAMOTIDINE 20MG TABLET PO ONE (21:00)
[2019-02-27] MEDS ORDERED: ACETAMINOPHEN 325MG TABLET PO ONE (21:00)
[2019-02-27] MEDS ORDERED: MAGNESIUM/ALUMINUM HYDROXIDE/SIMETHICONE 30ML UDC PO ONE (21:00)
[2019-02-27 21:05] LABS: BASOPHILS % 1.2 % (0.0-2.0); EOSINOPHILS % 6.6 % (0.0-5.0); HEMATOCRIT. 40.7 % (36.0-48.0); HEMOGLOBIN. 13.9 g/dL (12.0-16.0); LYMPHOCYTES % 47.6 % (20.0-50.0); MEAN CORPUSCULAR HEMOGLOBIN 31.5 pg (28.0-32.0); MEAN CORPUSCULAR VOLUME 92.2 fL (81.0-99.0); MEAN PLATELET VOLUME 7.8 fl (7.4-10.4); MONOCYTES % 12.3 % (2.0-8.0); NEUTROPHILS % 32.3 % (40.0-76.0); PLATELET 292 x1000/uL (130-400); RED BLOOD CELL COUNT 4.41 mill/uL (4.2-5.4); RED CELL DISTRIBUTION WIDTH 13.3 % (11.6-14.6)
[2019-02-27 21:09] LABS: CHLORIDE 107 mEq/L (98-107)
[2019-02-28 11:00] VITALS: BP 115/75
== END 2019-02-28 12:14 | disposition home or self-care (01) ==
LOC: ER 16:54
DX: R07.89 Other chest pain (principal); F17.210 Nicotine dependence, cigarettes, uncomplicated; Z71.6 Tobacco abuse counseling
CPT/HCPCS: 36415; 71045; 83880; 84484; 93005; 99284; 99406

== ENCOUNTER 2022-09-27 21:57 | Inpatient (IN) | payer MEDICARE, MEDICAID ==
[~2022-09-27] VITALS: Ht 162.6 cm; Wt 76.2 kg
[2022-09-27 21:57] VITALS: BP_SYST 140; BP_SYST 150; BP_DIAS 66; BP_DIAS 86; PULSE 80; PULSE 81; RESP 18; TEMP 97.5; TEMP 97.7
[~2022-09-27 21:57] MED LIST changes: +AMLO10TA80 PO; -QUET100T33 PO; +QUET100T34 PO
[2022-09-28] MEDS ORDERED: MORPHINE SULFATE 4 MG/ML CPJ (NOT FOR IM USE) IV PRN ×2 (03:15)
[2022-09-28] MEDS ORDERED: NALOXONE HCL 0.4 MG/ML 1ML VIAL IV PRN (03:15)
[2022-09-28] MEDS ORDERED: DEXT 5%/LACTATED RINGERS 1,000 ML IV SCH (03:15)
[2022-09-28] MEDS ORDERED: ACETAMINOPHEN 325MG TABLET PO PRN ×2 (03:15)
[2022-09-28 06:45] LABS: BASOPHILS % 0.4 % (0.0-2.0); EOSINOPHILS % 3.7 % (0.0-5.0); LYMPHOCYTES % 18.7 % (20.0-50.0); MEAN CORPUSCULAR HEMOGLOBIN 31.8 pg (28.0-32.0); MEAN CORPUSCULAR VOLUME 93.1 fL (81.0-99.0); MEAN PLATELET VOLUME 9.8 fl (7.4-10.4); NEUTROPHILS % 67.2 % (40.0-76.0); PLATELET 222 x1000/uL (130-400); RED BLOOD CELL COUNT 4.73 mill/uL (4.2-5.4); RED CELL DISTRIBUTION WIDTH 13.5 % (11.6-14.6)
[2022-09-28 08:00] VITALS: BP 148/90; PULSE 74; RESP 18; TEMP 97.4
[2022-09-28 08:04] LABS: CHLORIDE 105 mEq/L (98-107)
[2022-09-28] MEDS: AMLODIPINE 10MG TABLET PO SCH (09:06)
[2022-09-28] MEDS: LOSARTAN POTASSIUM 50 MG TABLET PO SCH (09:06)
[2022-09-28] MEDS ORDERED: IPRATROPIUM/ALBUTEROL 0.5-3(2.5)MG/3ML NEB HHN PRN (12:00)
[2022-09-28] MEDS: POLYETHYLENE GLYCOL 3350 (17GM) 1 DOSE PACK PO SCH (14:05)
[2022-09-28] MEDS: HYDROCODONE/ACETAMINOPHEN 5/325MG TABLET PO PRN (14:10)
[2022-09-28] MEDS: LACTULOSE 20G/30ML UDC PO SCH ×2 (17:55→21:57)
[2022-09-28 18:12] LABS: CREATINE KINASE 31 IU/L (26-192)
[2022-09-28 20:00] VITALS: BP 137/79; PULSE 78; RESP 18; TEMP 97
[2022-09-29] MEDS: LACTULOSE 20G/30ML UDC PO SCH
[2022-09-29 06:25] LABS: BASOPHILS % 0.6 % (0.0-2.0); EOSINOPHILS % 2.9 % (0.0-5.0); HEMATOCRIT. 40.9 % (36.0-48.0); HEMOGLOBIN. 14.1 g/dL (12.0-16.0); LYMPHOCYTES % 21.9 % (20.0-50.0); MEAN CORPUSCULAR HEMOGLOBIN 31.9 pg (28.0-32.0); MEAN CORPUSCULAR VOLUME 92.4 fL (81.0-99.0); MEAN PLATELET VOLUME 8.4 fl (7.4-10.4); MONOCYTES % 11.8 % (2.0-8.0); NEUTROPHILS % 62.8 % (40.0-76.0); PLATELET 294 x1000/uL (130-400); RED BLOOD CELL COUNT 4.42 mill/uL (4.2-5.4); RED CELL DISTRIBUTION WIDTH 13.3 % (11.6-14.6)
[2022-09-29] MEDS: HYDROCODONE/ACETAMINOPHEN 5/325MG TABLET PO PRN ×2 (06:31→14:29)
[2022-09-29 06:42] LABS: CHLORIDE 107 mEq/L (98-107)
[2022-09-29 07:07] LABS: TOTAL IRON BINDING CAPACITY 247 ug/dL (250-450)
[2022-09-29 08:00] VITALS: BP 146/78; PULSE 72; RESP 18; TEMP 98
[2022-09-29 08:31] LABS: FOLIC ACID (FOLATE) SERUM 5.7 ng/mL (>5.38)
[2022-09-29] MEDS: POLYETHYLENE GLYCOL 3350 (17GM) 1 DOSE PACK PO SCH (08:35)
[2022-09-29] MEDS: LOSARTAN POTASSIUM 50 MG TABLET PO SCH (08:35)
[2022-09-29] MEDS: AMLODIPINE 10MG TABLET PO SCH (08:35)
[2022-09-29 20:00] VITALS: BP 107/73; PULSE 67; RESP 20; TEMP 97.1
[2022-09-29] MEDS: SENNOSIDES/DOCUSATE SOD 8.6/50MG TABLET PO SCH (21:40)
[2022-09-30] MEDS: HYDROCODONE/ACETAMINOPHEN 5/325MG TABLET PO PRN ×5 (00:56→22:02)
[2022-09-30 08:00] VITALS: BP 125/74; PULSE 78; RESP 18; TEMP 97.8
[2022-09-30] MEDS: LOSARTAN POTASSIUM 50 MG TABLET PO SCH (08:52)
[2022-09-30] MEDS: AMLODIPINE 10MG TABLET PO SCH (08:53)
[2022-09-30] MEDS: POLYETHYLENE GLYCOL 3350 (17GM) 1 DOSE PACK PO SCH (08:53)
[2022-09-30 20:00] VITALS: BP 107/71; PULSE 71; RESP 17; TEMP 97.8
[2022-09-30] MEDS: SENNOSIDES/DOCUSATE SOD 8.6/50MG TABLET PO SCH (21:00)
[2022-10-01 06:17] LABS: BASOPHILS % 0.6 % (0.0-2.0); EOSINOPHILS % 2.4 % (0.0-5.0); HEMATOCRIT. 39.6 % (36.0-48.0); HEMOGLOBIN. 13.5 g/dL (12.0-16.0); LYMPHOCYTES % 27.5 % (20.0-50.0); MEAN CORPUSCULAR HEMOGLOBIN 31.7 pg (28.0-32.0); MEAN CORPUSCULAR VOLUME 92.9 fL (81.0-99.0); MEAN PLATELET VOLUME 8.4 fl (7.4-10.4); MONOCYTES % 11.1 % (2.0-8.0); NEUTROPHILS % 58.4 % (40.0-76.0); PLATELET 308 x1000/uL (130-400); RED BLOOD CELL COUNT 4.27 mill/uL (4.2-5.4); RED CELL DISTRIBUTION WIDTH 13.7 % (11.6-14.6)
[2022-10-01] MEDS: HYDROCODONE/ACETAMINOPHEN 5/325MG TABLET PO PRN ×3 (06:28→23:59)
[2022-10-01 06:43] LABS: CHLORIDE 105 mEq/L (98-107)
[2022-10-01 07:05] LABS: HEPATITIS B SURFACE ANTIGEN NEGATIVE
[2022-10-01 08:00] VITALS: BP 104/68; PULSE 61; RESP 17; TEMP 97.3
[2022-10-01] MEDS: LOSARTAN POTASSIUM 50 MG TABLET PO SCH ×2 (09:00→09:19)
[2022-10-01] MEDS: AMLODIPINE 10MG TABLET PO SCH (09:00)
[2022-10-01] MEDS: POLYETHYLENE GLYCOL 3350 (17GM) 1 DOSE PACK PO SCH (09:17)
[2022-10-01] MEDS: LACTULOSE 20G/30ML UDC PO SCH ×3 (14:30→21:30)
[2022-10-01 20:03] VITALS: BP 126/77; PULSE 65; RESP 65; TEMP 97.7
[2022-10-01] MEDS: SENNOSIDES/DOCUSATE SOD 8.6/50MG TABLET PO SCH (21:30)
[2022-10-02] MEDS: HYDROCODONE/ACETAMINOPHEN 5/325MG TABLET PO PRN ×2 (06:41→14:11)
[2022-10-02 07:02] LABS: BASOPHILS % 1.1 % (0.0-2.0); EOSINOPHILS % 2.2 % (0.0-5.0); HEMATOCRIT. 40.2 % (36.0-48.0); HEMOGLOBIN. 13.8 g/dL (12.0-16.0); LYMPHOCYTES % 25.2 % (20.0-50.0); MEAN CORPUSCULAR HEMOGLOBIN 31.7 pg (28.0-32.0); MEAN CORPUSCULAR VOLUME 92.3 fL (81.0-99.0); MEAN PLATELET VOLUME 8.5 fl (7.4-10.4); MONOCYTES % 11.1 % (2.0-8.0); NEUTROPHILS % 60.4 % (40.0-76.0); PLATELET 350 x1000/uL (130-400); RED BLOOD CELL COUNT 4.36 mill/uL (4.2-5.4); RED CELL DISTRIBUTION WIDTH 13.5 % (11.6-14.6)
[2022-10-02 07:06] LABS: PROTHROMBIN TIME 10.4 sec (9.6-11.0)
[2022-10-02 07:29] LABS: CHLORIDE 109 mEq/L (98-107)
[2022-10-02 08:00] VITALS: BP 117/62; PULSE 64; RESP 18; TEMP 97.3
[2022-10-02] MEDS: POLYETHYLENE GLYCOL 3350 (17GM) 1 DOSE PACK PO SCH (09:31)
[2022-10-02] MEDS: AMLODIPINE 10MG TABLET PO SCH (09:31)
[2022-10-02 20:10] VITALS: BP 133/78; PULSE 96; RESP 20; TEMP 97.3
[2022-10-02] MEDS: SENNOSIDES/DOCUSATE SOD 8.6/50MG TABLET PO SCH (21:35)
[2022-10-03] MEDS: HYDROCODONE/ACETAMINOPHEN 5/325MG TABLET PO PRN ×3 (00:51→22:25)
[2022-10-03] MEDS: AMLODIPINE 10MG TABLET PO SCH (07:42)
[2022-10-03] MEDS: POLYETHYLENE GLYCOL 3350 (17GM) 1 DOSE PACK PO SCH (07:42)
[2022-10-03] MEDS: LOSARTAN POTASSIUM 50 MG TABLET PO SCH (07:42)
[2022-10-03 08:00] VITALS: BP 134/81; PULSE 74; RESP 20; TEMP 96.6
[2022-10-03] MEDS ORDERED: NALOXONE HCL 0.4MG/ML VIAL IV PRN (12:00)
[2022-10-03 20:00] VITALS: BP 124/68; PULSE 60; RESP 20; TEMP 98.1
[2022-10-03] MEDS: SENNOSIDES/DOCUSATE SOD 8.6/50MG TABLET PO SCH (20:14)
[2022-10-04] MEDS: HYDROCODONE/ACETAMINOPHEN 5/325MG TABLET PO PRN ×3 (06:51→21:47)
[2022-10-04 08:00] VITALS: BP 116/66; PULSE 63; RESP 20; TEMP 98
[2022-10-04] MEDS: AMLODIPINE 10MG TABLET PO SCH (09:16)
[2022-10-04] MEDS: POLYETHYLENE GLYCOL 3350 (17GM) 1 DOSE PACK PO SCH (09:16)
[2022-10-04] MEDS: LOSARTAN POTASSIUM 50 MG TABLET PO SCH (09:16)
[2022-10-04 20:12] VITALS: BP 116/72; PULSE 62; RESP 20; TEMP 97
[2022-10-04] MEDS: SENNOSIDES/DOCUSATE SOD 8.6/50MG TABLET PO SCH (21:43)
[2022-10-05 08:00] VITALS: BP 112/69; PULSE 55; RESP 18; TEMP 97.5
[2022-10-05] MEDS: AMLODIPINE 10MG TABLET PO SCH (09:00)
[2022-10-05] MEDS: LOSARTAN POTASSIUM 50 MG TABLET PO SCH (09:08)
[2022-10-05] MEDS: HYDROCODONE/ACETAMINOPHEN 5/325MG TABLET PO PRN ×2 (09:09→16:23)
[2022-10-05] MEDS: POLYETHYLENE GLYCOL 3350 (17GM) 1 DOSE PACK PO SCH (09:09)
[2022-10-05 20:00] VITALS: BP 101/66; PULSE 61; RESP 20; TEMP 96.9
[2022-10-05] MEDS: SENNOSIDES/DOCUSATE SOD 8.6/50MG TABLET PO SCH (21:15)
[2022-10-05] MEDS: ZOLPIDEM TARTRATE 5MG TABLET PO PRN (21:15)
[2022-10-06 08:00] VITALS: BP_SYST 123; BP_SYST 141; BP_DIAS 64; BP_DIAS 77; PULSE 61; PULSE 71; RESP 18; TEMP 97.7; TEMP 97.9
[2022-10-06] MEDS: POLYETHYLENE GLYCOL 3350 (17GM) 1 DOSE PACK PO SCH (08:55)
[2022-10-06] MEDS: LOSARTAN POTASSIUM 50 MG TABLET PO SCH (08:55)
[2022-10-06] MEDS: HYDROCODONE/ACETAMINOPHEN 5/325MG TABLET PO PRN ×3 (08:55→17:25)
[2022-10-06] MEDS: AMLODIPINE 10MG TABLET PO SCH (08:56)
[2022-10-06 20:00] VITALS: BP 114/75; PULSE 78; RESP 18; TEMP 97.8
[2022-10-06] MEDS: ZOLPIDEM TARTRATE 5MG TABLET PO PRN (20:33)
[2022-10-06] MEDS: SENNOSIDES/DOCUSATE SOD 8.6/50MG TABLET PO SCH (20:33)
[2022-10-07] MEDS: HYDROCODONE/ACETAMINOPHEN 5/325MG TABLET PO PRN ×4 (03:13→22:10)
[2022-10-07 08:00] VITALS: BP 119/72; PULSE 57; RESP 18; TEMP 97.4
[2022-10-07] MEDS: LOSARTAN POTASSIUM 50 MG TABLET PO SCH (08:54)
[2022-10-07] MEDS: AMLODIPINE 10MG TABLET PO SCH (08:54)
[2022-10-07] MEDS: POLYETHYLENE GLYCOL 3350 (17GM) 1 DOSE PACK PO SCH (08:54)
[2022-10-07 20:00] VITALS: BP 115/71; PULSE 66; RESP 17; TEMP 97.3
[2022-10-07] MEDS: SENNOSIDES/DOCUSATE SOD 8.6/50MG TABLET PO SCH (22:06)
[2022-10-08] MEDS: HYDROCODONE/ACETAMINOPHEN 5/325MG TABLET PO PRN (07:47)
[2022-10-08 08:00] VITALS: BP 129/83; PULSE 60; RESP 18; TEMP 98.1
[2022-10-08] MEDS: AMLODIPINE 10MG TABLET PO SCH (09:34)
[2022-10-08] MEDS: LOSARTAN POTASSIUM 50 MG TABLET PO SCH (09:34)
[2022-10-08] MEDS: POLYETHYLENE GLYCOL 3350 (17GM) 1 DOSE PACK PO SCH (09:34)
[2022-10-08] MEDS ORDERED: LACTULOSE 20G/30ML UDC PO PRN (12:15)
[2022-10-08 13:43] VITALS: BP 129/83; PULSE 60; TEMP 98.1
[2022-10-08] MEDS ORDERED: LOSA50TA41 PO (14:43)
[2022-10-08] MEDS ORDERED: AMLO10TA80 PO (14:43)
[2022-10-15] MEDS ORDERED: HYDR-4001 MT (07:19)
== END 2022-10-08 15:42 | disposition home health service (06) | DRG 551 ==
PROVIDERS: ADMIT Physical Medicine & Rehabilitation Spinal Cord Injury Medicine; ATTEND Internal Medicine
DX: M48.02 Spinal stenosis, cervical region (principal); G82.50 Quadriplegia, unspecified; E44.1 Mild protein-calorie malnutrition; F01.53 Vascular dementia, unspecified severity, with mood disturbance; G99.2 Myelopathy in diseases classified elsewhere; B19.20 Unspecified viral hepatitis C without hepatic coma; K74.60 Unspecified cirrhosis of liver; K59.00 Constipation, unspecified; D64.9 Anemia, unspecified; E66.9 Obesity, unspecified; E87.6 Hypokalemia; F17.210 Nicotine dependence, cigarettes, uncomplicated; G35 Multiple sclerosis; I10 Essential (primary) hypertension; R13.10 Dysphagia, unspecified; M48.04 Spinal stenosis, thoracic region; R42 Dizziness and giddiness; R53.81 Other malaise; R73.9 Hyperglycemia, unspecified; R20.0 Anesthesia of skin; R26.89 Other abnormalities of gait and mobility; R20.2 Paresthesia of skin; Z91.81 History of falling; Z86.73 Personal history of transient ischemic attack (TIA), and cerebral infarction without residual deficits; Z82.49 Family history of ischemic heart disease and other diseases of the circulatory system; Z68.28 Body mass index [BMI] 28.0-28.9, adult; Z88.5 Allergy status to narcotic agent; Z79.899 Other long term (current) drug therapy; Z71.3 Dietary counseling and surveillance; R26.9 Unspecified abnormalities of gait and mobility
CPT/HCPCS: 36415; 76700; 80048; 80053; 80076; 82105; 82140; 82306; 82550; 82607; 82728; 82746; 83540; 83550; 84443; 85025; 86705; 86709; 86803; 87340; 92523; 92610; 93970; 97110; 97116; 97140; 97150; 97162; 97166; 97530; 97535; 97542; 97760; J2270; J7121